=== PATIENT | female | born 1995 | race American Indian/Alaskan Native ===

== ENCOUNTER 2021-10-31 19:53 | Emergency (ER) | payer OTHER ==
[2021-10-31 20:26] VITALS: BP 134/80
[2021-11-01] MEDS ORDERED: HYDROcodone/ACETAMINOPHEN 5-325 MG TAB PO STA (03:19)
--- NOTE | 2021-11-01 03:52 | XRay Report ---
CHEST 2 VIEWS INDICATION / CLINICAL INFORMATION: pain. COMPARISON: None available. FINDINGS: SUPPORT DEVICES: None. HEART / MEDIASTINUM: No significant abnormality. LUNGS / PLEURA: No significant pulmonary or pleural abnormality. No pneumothorax. ADDITIONAL FINDINGS: No significant additional findings. IMPRESSION: 1. No acute findings. Signer Name: Sherri Shields MD Signed: 11/01/2021 3:48 AM Workstation Name: [id number]
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
--- NOTE | 2021-11-01 09:30 | Electrocardiograph Report ---
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
--- NOTE | 2021-11-01 09:32 | Electrocardiograph Report ---
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
== END 2021-11-01 06:56 | disposition home or self-care (01) ==
LOC: ED 19:53
DX: M79.18 Myalgia, other site (principal); V89.2XXA Person injured in unspecified motor-vehicle accident, traffic, initial encounter; Y93.89 Activity, other specified; Y92.89 Other specified places as the place of occurrence of the external cause; Y99.8 Other external cause status
CPT/HCPCS: 71046; 93005; 99283